=== PATIENT | male | born 1945 | race Caucasian/White ===

== ENCOUNTER 2022-10-13 08:36 | Emergency (ER) | payer MEDICARE, OTHER ==
[2022-10-13] MEDS ORDERED: EPINEPHrine 1:10,000 [1 MG/10 ML] SYRINGE IVP ONE (08:38)
[2022-10-13] MEDS ORDERED: SODIUM BICARBONATE [ADULT] 8.4% 50 MEQ/50 ML SYRINGE IVP ONE (08:38)
[2022-10-13] MEDS ORDERED: NALOXONE HCL 1 MG/ML 2 ML SYRINGE IM ONE (08:38)
[2022-10-13] MEDS ORDERED: BISA-151 PO (08:45)
[2022-10-13] MEDS ORDERED: AMLO-258 PO (08:45)
[2022-10-13] MEDS ORDERED: IBUP-1492 PO (08:45)
[2022-10-13] MEDS ORDERED: ATOR20TA PO (08:45)
[2022-10-13] MEDS ORDERED: LOSA-381 PO (08:45)
[2022-10-13] MEDS ORDERED: OMEP20 PO (08:45)
[2022-10-13] MEDS ORDERED: ASPI-1450 PO (08:45)
== END 2022-10-13 10:40 ==
LOC: EMS 08:37
DX: I46.9 Cardiac arrest, cause unspecified (principal); E78.00 Pure hypercholesterolemia, unspecified; I10 Essential (primary) hypertension
CPT/HCPCS: 99285; J0171; J3490; J2310; 31500; 92950